=== PATIENT | male | born 1960 | race Caucasian/White ===

== ENCOUNTER 2016-07-13 12:03 | Emergency (ER) | payer BC ==
[~2016-07-13] VITALS: Ht 182.9 cm; Wt 100.5 kg
[~2016-07-13 12:03] MED LIST: ALEVE220 M2 PO; HYDROCODON-ACE1 EAC7 PO; KEFLEX500 MG PO; LIGAPLEX PO; OMEGA 3 PO; PRILOSEC PO
[2016-07-13] MEDS ORDERED: PROCTOFOAM-HC10 GM PR (14:00)
[2016-07-13 14:11] VITALS: BP 140/99
== END 2016-07-13 14:20 | disposition home or self-care (01) ==
LOC: RME 12:03 → EME 12:03 → RME 14:20
PROC: 069Y3ZZ Drainage of Lower Vein, Percutaneous Approach (ICD-10-PCS; principal; 2016-07-13)
DX: K64.5 Perianal venous thrombosis (principal)
CPT/HCPCS: 99281; 99284